=== PATIENT | male | born 1935 | race African-American/Black ===

== ENCOUNTER 2017-02-10 05:05 | Emergency (ER) | payer MEDICARE ==
[~2017-02-10] VITALS: Ht 182.9 cm; Wt 79.0 kg
[2017-02-10 07:12] LABS: BASOPHILS % 0.5 % (0.0-2.0); EOSINOPHILS % 1.5 % (0.0-5.0); HEMATOCRIT. 40.7 % (42.0-52.0); HEMOGLOBIN. 13.6 g/dL (14.0-18.0); MEAN CORPUSCULAR HEMOGLOBIN 27.7 pg (28.0-32.0); MEAN CORPUSCULAR VOLUME 82.6 fL (80.0-94.0); MEAN PLATELET VOLUME 8.1 fl (7.4-10.4); MONOCYTES % 7.5 % (2.0-8.0); NEUTROPHILS % 81.5 % (40.0-76.0); PLATELET 146 x1000/uL (130-400); RED BLOOD CELL COUNT 4.92 mill/uL (4.7-6.1); RED CELL DISTRIBUTION WIDTH 14.2 % (11.6-14.6)
[2017-02-10 07:18] LABS: CLARITY URINE CLEAR (CLEAR); COLOR URINE YELLOW (YELLOW); GLUCOSE URINE NEGATIVE (NEGATIVE); KETONES URINE TRACE (NEGATIVE); LEUKOCYTE ESTERASE URINE NEGATIVE (NEGATIVE); NITRITE URINE NEGATIVE (NEGATIVE); OCCULT BLOOD URINE 1+ (NEGATIVE); PROTEIN URINE NEGATIVE (NEGATIVE); SPECIFIC GRAVITY URINE 1.013 (1.005-1.030)
[2017-02-10 07:23] LABS: CARBON DIOXIDE 29 mEq/L (21-32); CHLORIDE 105 mEq/L (98-107)
[2017-02-10 07:40] VITALS: BP 150/83
== END 2017-02-10 08:15 | disposition home or self-care (01) ==
LOC: ER 05:25
DX: N40.1 Benign prostatic hyperplasia with lower urinary tract symptoms (principal); R33.8 Other retention of urine; Z88.0 Allergy status to penicillin; Z96.653 Presence of artificial knee joint, bilateral
CPT/HCPCS: 36415; 51702; 80053; 81001; 85025; 99284; A4315

== ENCOUNTER 2017-03-23 10:48 | Emergency (ER) | payer MEDICARE ==
[~2017-03-23] VITALS: Ht 182.9 cm; Wt 81.0 kg
[2017-03-23] MEDS ORDERED: TAMSULOSIN HCL 0.4MG SR CAPSULE PO ONE (11:45)
[2017-03-23 12:35] LABS: CLARITY URINE CLEAR (CLEAR); COLOR URINE YELLOW (YELLOW); GLUCOSE URINE NEGATIVE (NEGATIVE); KETONES URINE NEGATIVE (NEGATIVE); LEUKOCYTE ESTERASE URINE NEGATIVE (NEGATIVE); NITRITE URINE NEGATIVE (NEGATIVE); OCCULT BLOOD URINE NEGATIVE (NEGATIVE); PH URINE 5.5 (4.5-8.0); PROTEIN URINE NEGATIVE (NEGATIVE); SPECIFIC GRAVITY URINE 1.011 (1.005-1.030); UROBILINOGEN URINE 0.2 E.U./dL (0.2-1.0)
[2017-03-23 13:26] VITALS: BP 160/89
== END 2017-03-23 13:29 | disposition home or self-care (01) ==
LOC: ER 11:20
DX: N40.1 Benign prostatic hyperplasia with lower urinary tract symptoms (principal); R33.8 Other retention of urine; R39.15 Urgency of urination; I10 Essential (primary) hypertension
CPT/HCPCS: 51702; 81003; 87086; 99284; A4315

== ENCOUNTER 2017-07-22 09:01 | Day surgery (SDC) | payer MEDICARE ==
[~2017-07-22] VITALS: Ht 182.9 cm; Wt 75.7 kg
[2017-07-22] MEDS ORDERED: NICARDIPINE 100MCG/ML 10ML VIAL (CATH LAB) IV ONE (09:52)
[2017-07-22] MEDS ORDERED: NITROGLYCERIN 50MCG/ML 10ML VIAL (CATH LAB) IV ONE (09:52)
[2017-07-22] MEDS ORDERED: HEPARIN SODIUM 1,000 UNIT/1ML VIAL IV ONE (09:54)
[2017-07-22] MEDS ORDERED: FINA5TAB11 PO (12:48)
[2017-07-22] MEDS ORDERED: TAMS0.4C31 PO (12:48)
[2017-07-22] MEDS ORDERED: ASPI-1159 PO (12:48)
[2017-07-22] MEDS ORDERED: AZAT50TA24 PO (12:48)
[2017-07-22] MEDS ORDERED: PRAV20TA57 PO (12:48)
[2017-07-22] MEDS ORDERED: LOSA25TA12 PO (12:48)
[2017-07-22] MEDS ORDERED: IODIXANOL 320MG/ML 100 ML BOTTLE IV ONE (13:29)
[2017-07-22] MEDS ORDERED: LIDOCAINE HCL 1% 20ML VIAL (Pyxis) INJ ONE (13:29)
[2017-07-22] MEDS ORDERED: MIDAZOLAM HCL 2 MG/2 ML VIAL ONE (13:41)
[2017-07-22] MEDS ORDERED: FENTANYL CITRATE/PF 50MCG/ML 2ML VIAL ONE (13:41)
[2017-07-22] MEDS ORDERED: ASPIRIN/SOD BICARB/CITRIC ACID 324MG TAB EFF ONE (13:54)
[2017-07-22] MEDS ORDERED: IOVERSOL 240MG/ML 100ML BOTTLE IV ONE (14:17)
[2017-07-22] MEDS ORDERED: ACETAMINOPHEN 325MG TABLET PO PRN (14:30)
[2017-07-22] MEDS ORDERED: ONDANSETRON HCL 4MG/2ML VIAL IV PRN (14:30)
[2017-07-22] MEDS ORDERED: MORPHINE SULFATE 2 MG/ML CPJ (NOT FOR IM USE) IV PRN (14:30)
== END 2017-07-22 19:00 | disposition home or self-care (01) ==
LOC: CCL 09:01
PROVIDERS: ATTEND Specialist
DX: I25.10 Atherosclerotic heart disease of native coronary artery without angina pectoris (principal); I10 Essential (primary) hypertension; E78.5 Hyperlipidemia, unspecified; Z98.61 Coronary angioplasty status
CPT/HCPCS: 93458; 99152; 99153; C1769; C1887; C1893; J1644; J2250; J3010; J3490; Q9967